=== PATIENT | female | born 1995 | race American Indian/Alaskan Native ===

== ENCOUNTER 2021-05-12 14:20 | Emergency (ER) | payer OTHER, MEDICAID ==
[2021-05-12 15:44] VITALS: BP 122/69
[2021-05-12 16:19] LABS: Bilirubin,Urine NEG (Negative); Blood,Urine MOD (Negative); Color,Urine Yellow (Yellow); Protein,Urine <15 mg/dL mg/dL (Negative); Urobilinogen,Urine < 2.0 mg/dL (<2.0)
[2021-05-12 16:26] LABS: Basophils # (Auto) 0.1 K/mm3 (0.0-0.1); Basophils % (Auto) 0.8 % (0.0-1.8); Eosinophils # (Auto) 0.2 K/mm3 (0.0-0.4); Eosinophils % (Auto) 1.8 % (0.0-4.3); Hematocrit 39.3 % (30.3-42.9); Hemoglobin 13.3 gm/dl (10.1-14.3); Lymphocytes # (Auto) 2.4 K/mm3 (1.2-5.4); Mean Corpuscular HGB Conc 34 % (30-34); Mean Corpuscular Volume 88 fl (79-97); Monocytes # (Auto) 0.9 K/mm3 (0.0-0.8); Monocytes % (Auto) 9.5 % (0.0-7.3); Platelet Count 266 K/mm3 (140-440); Red Blood Count 4.47 M/mm3 (3.65-5.03); Red Cell Distribution Width 14.9 % (13.2-15.2)
[2021-05-12 16:44] LABS: Alanine Aminotransferase 13 units/L (7-56); Albumin 4.6 g/dL (3.9-5); Blood Urea Nitrogen 8 mg/dL (7-17); Calcium 9.3 mg/dL (8.4-10.2); Hemolysis Index 35
[2021-05-12 16:48] LABS: BUN/Creatinine Ratio 13
--- NOTE | 2021-05-12 17:57 | Emergency Department Report ---
ED HPI - General Chief complaint: Vaginal Bleeding Stated complaint: EARLY , LIGHT BLEEDING Time Seen by Provider: 05/12/21 17:16 Source: patient Mode of arrival: Ambulatory Limitations: No Limitations - History of Present Illness Initial comments: This is a 26-year-old female nontoxic, well nourished in appearance, no acute signs of distress presents to the ED with c/o of vaginal bleeding x1 day. Patient stated yesterday she noticed some spotting last night and this morning. Was instructed by her OB to come into the ED for further evaluation. Patient denies any abdominal or pelvic pain. Patient denies any vaginal discharge or foul odor. Patient denies any nausea, vomiting, chest pain, shortness of breathe, fever, chills, headache, stiff neck, numbness, tingling. Patient denies any urinary symptoms. Patient denies any allergies or PMH. Patient stated has OB follow-up in a few days. MD Complaint: vaginal bleeding -: Last night Severity scale (0 -10): 0 Consistency: intermittent Improves with: none Worsens with: none Associated symptoms: vaginal bleeding. denies: nausea/vomiting, vaginal discharge, abdominal pain, dysuria, headache, vision changes, malaise, dysparuenia, rash, shortness of breath, syncope, weakness Vaginal bleeding: light :: Yes Number of weeks : 9 Pre- care: followed by OB - Related Data Allergies Allergy/AdvReac Type Severity Reaction Status Date / Time No Known Allergies Allergy Unverified 05/12/21 15:42 ED Review of Systems ROS: Stated complaint: EARLY , LIGHT BLEEDING Other details as noted in HPI Comment: All other systems reviewed and negative Constitutional: denies: chills, fever Eyes: denies: eye pain, eye discharge, vision change ENT: denies: ear pain, throat pain Respiratory: denies: cough, shortness of breath, wheezing Cardiovascular: denies: chest pain, palpitations Endocrine: no symptoms reported Gastrointestinal: denies: abdominal pain, nausea, diarrhea Genitourinary: abnormal menses. denies: urgency, dysuria, discharge Musculoskeletal: denies: back pain, joint swelling, arthralgia Skin: denies: rash, lesions Neurological: denies: headache, weakness, paresthesias Psychiatric: denies: anxiety, depression Hematological/Lymphatic: denies: easy bleeding, easy bruising ED Past Medical Hx - Past Medical History Previous Medical History?: Yes Hx Asthma: Yes - Surgical History Past Surgical History?: No ED Physical Exam - General Limitations: No Limitations General appearance: alert, in no apparent distress - Head Head exam: Present: atraumatic, normocephalic - Eye Eye exam: Present: normal appearance - Neck Neck exam: Present: normal inspection, full ROM. Absent: lymphadenopathy - Respiratory Respiratory exam: Absent: respiratory distress - Cardiovascular Cardiovascular Exam: Present: regular rate - GI/Abdominal GI/Abdominal exam: Present: soft, normal bowel sounds. Absent: distended, tenderness, guarding, rebound, rigid, diminished bowel sounds - Extremities Exam Extremities exam: Present: normal inspection, full ROM - Back Exam Back exam: Present: normal inspection, full ROM. Absent: tenderness, CVA tenderness (R), CVA tenderness (L), muscle spasm, paraspinal tenderness, vertebral tenderness, rash noted - Neurological Exam Neurological exam: Present: alert, oriented X3, normal gait - Psychiatric Psychiatric exam: Present: normal affect, normal mood - Skin Skin exam: Present: warm, dry, intact, normal color. Absent: rash ED Course Vital Signs 05/12/21 15:43 Temperature 98.4 F Pulse Rate 68 Respiratory 16 Rate Blood Pressure 122/69 O2 Sat by Pulse 100 Oximetry - Reevaluation(s) Reevaluation #1: 05/12/21 17:57 Patient is speaking in full sentences with no signs of distress noted. ED Medical Decision Making - Lab Data Result diagrams: 05/12/21 16:05 05/12/21 16:05 Lab Results 05/12/21 05/12/21 05/12/21 Range/Units 16:05 16:05 16:05 WBC 9.4 (4.5-11.0) K/mm3 RBC 4.47 (3.65-5.03) M/mm3 Hgb 13.3 (10.1-14.3) gm/dl Hct 39.3 (30.3-42.9) % MCV 88 (79-97) fl MCH 30 (28-32) pg MCHC 34 (30-34) % RDW 14.9 (13.2-15.2) % Plt Count 266 (140-440) K/mm3 Lymph % (Auto) 26.0 (13.4-35.0) % [place] % (Auto) 9.5 H (0.0-7.3) % Eos % (Auto) 1.8 (0.0-4.3) % Baso % (Auto) 0.8 (0.0-1.8) % Lymph # (Auto) 2.4 (1.2-5.4) K/mm3 [place] # (Auto) 0.9 H (0.0-0.8) K/mm3 Eos # (Auto) 0.2 (0.0-0.4) K/mm3 Baso # (Auto) 0.1 (0.0-0.1) K/mm3 Seg Neutrophils % 61.9 (40.0-70.0) % Seg Neutrophils # 5.8 (1.8-7.7) K/mm3 Sodium 134 L (137-145) mmol/L Potassium 3.9 (3.6-5.0) mmol/L Chloride 99.6 (98-107) mmol/L Carbon Dioxide 26 (22-30) mmol/L Anion Gap 12 mmol/L BUN 8 (7-17) mg/dL Creatinine 0.6 (0.6-1.2) mg/dL Estimated GFR > 60 ml/min BUN/Creatinine Ratio 13 % Glucose 101 H (65-100) mg/dL Calcium 9.3 (8.4-10.2) mg/dL Total Bilirubin 0.40 (0.1-1.2) mg/dL AST 20 (5-40) units/L ALT 13 (7-56) units/L Alkaline Phosphatase 51 (35-129) units/L Total Protein 6.7 (6.3-8.2) g/dL Albumin 4.6 (3.9-5) g/dL Albumin/Globulin Ratio 2.2 % HCG, Quant 30054 H (0-4) mIU/mL Urine Color (Yellow) Urine Turbidity (Clear) Urine pH (5.0-7.0) Ur Specific [place] (1.003-1.030) Urine Protein (Negative) mg/dL Urine Glucose (UA) (Negative) mg/dL Urine Ketones (Negative) mg/dL Urine Blood (Negative) Urine Nitrite (Negative) Urine Bilirubin (Negative) Urine Urobilinogen (<2.0) mg/dL Ur Leukocyte Esterase (Negative) Urine WBC (Auto) (0.0-6.0) /HPF Urine RBC (Auto) (0.0-6.0) /HPF U Epithel Cells (Auto) (0-13.0) /HPF Blood Type Ord Rhogam Gestat Weeks WEEKS 05/12/21 05/12/21 Range/Units 16:05 Unknown WBC (4.5-11.0) K/mm3 RBC (3.65-5.03) M/mm3 Hgb (10.1-14.3) gm/dl Hct (30.3-42.9) % MCV (79-97) fl MCH (28-32) pg MCHC (30-34) % RDW (13.2-15.2) % Plt Count (140-440) K/mm3 Lymph % (Auto) (13.4-35.0) % [place] % (Auto) (0.0-7.3) % Eos % (Auto) (0.0-4.3) % Baso % (Auto) (0.0-1.8) % Lymph # (Auto) (1.2-5.4) K/mm3 [place] # (Auto) (0.0-0.8) K/mm3 Eos # (Auto) (0.0-0.4) K/mm3 Baso # (Auto) (0.0-0.1) K/mm3 Seg Neutrophils % (40.0-70.0) % Seg Neutrophils # (1.8-7.7) K/mm3 Sodium (137-145) mmol/L Potassium (3.6-5.0) mmol/L Chloride (98-107) mmol/L Carbon Dioxide (22-30) mmol/L Anion Gap mmol/L BUN (7-17) mg/dL Creatinine (0.6-1.2) mg/dL Estimated GFR ml/min BUN/Creatinine Ratio % Glucose (65-100) mg/dL Calcium (8.4-10.2) mg/dL Total Bilirubin (0.1-1.2) mg/dL AST (5-40) units/L ALT (7-56) units/L Alkaline Phosphatase (35-129) units/L Total Protein (6.3-8.2) g/dL Albumin (3.9-5) g/dL Albumin/Globulin Ratio % HCG, Quant (0-4) mIU/mL Urine Color Yellow (Yellow) Urine Turbidity Clear (Clear) Urine pH 7.0 (5.0-7.0) Ur Specific [place] 1.012 (1.003-1.030) Urine Protein <15 mg/dl (Negative) mg/dL Urine Glucose (UA) Neg (Negative) mg/dL Urine Ketones Neg (Negative) mg/dL Urine Blood Mod (Negative) Urine Nitrite Neg (Negative) Urine Bilirubin Neg (Negative) Urine Urobilinogen < 2.0 (<2.0) mg/dL Ur Leukocyte Esterase Neg (Negative) Urine WBC (Auto) 1.0 (0.0-6.0) /HPF Urine RBC (Auto) 1.0 (0.0-6.0) /HPF U Epithel Cells (Auto) 1.0 (0-13.0) /HPF Blood Type O POSITIVE Ord Rhogam Gestat Weeks Rh pos WEEKS - Radiology Data [facility] [address] [place] [address] U ltrasound Report Signed Patient: JENNY MOSER MR#: [id number] : 1995 Acct:[id number] Age/Sex: 26 / F ADM Date: 05/12/21 Loc: ED Attending Dr: Ordering Physician: MARKUS JOHNSON NP Date of Service: 05/12/21 Procedure(s): US OB <= 14 weeks fetus Accession Number(s): [id number] cc: MARKUS JOHNSON NP ULTRASOUND OBSTETRIC INDICATION / CLINICAL INFORMATION: vaginal bleeding. TECHNIQUE: Transabdominal and Transvaginal. COMPARISON: None available. FINDINGS: GESTATIONAL SAC: Well-defined oval shape and intrauterine in location. YOLK SAC: No significant abnormality. EMBRYO/FETUS: No significant abnormality. - [place]-Rump Length = 0.5 cm = 6 weeks, 2 day(s). - Heart Rate, beats per minute (if present) = not detected ADNEXA: No significant abnormality. FREE FLUID: None. ADDITIONAL FINDINGS: None. IMPRESSION: 1. Early IUP measuring 6 weeks 2 days. Short-term follow-up beta-hCG and ultrasound recommended to confirm heart rate and viability. Signer Name: Shree Cruz MD Signed: 05/12/2021 6:33 PM Workstation Name: [id number] Transcribed By: AMY Dictated By: Shree Cruz MD Electronically Authenticated By: Shree Cruz MD Signed Date/Time: 05/12/211832 DD/ 29 TD/TT: [facility] [address] [place] [address] Ultrasound Report Signed Patient: JENNY MOESR MR#: [id number] : 1995 Acct:[id number] Age/Sex: 26 / F ADM Date: 05/12/21 Loc: ED Attending Dr: Ordering Physician: MARKUS JOHNSON NP Date of Service: 05/12/21 Procedure(s): US OB transvaginal Accession Number(s): [id number] cc: MARKUS JOHNSON NP ULTRASOUND OBSTETRIC INDICATION / CLINICAL INFORMATION: vaginal bleeding. TECHNIQUE: Transabdominal and Transvaginal. COMPARISON: None available. FINDINGS: GESTATIONAL SAC: Well-defined oval shape and intrauterine in location. YOLK SAC: No significant abnormality. EMBRYO/FETUS: No significant abnormality. - [place]- Rump Length = 0.5 cm = 6 weeks, 2 day(s). - Heart Rate, beats per minute (if present) = not detected ADNEXA: No significant abnormality. FREE FLUID: None. ADDITIONAL FINDINGS: None. IMPRESSION: 1. Early IUP measuring 6 weeks 2 days. Short-term follow-up beta-hCG and ultrasound recommended to confirm heart rate and viability. Signer Name: Shree Cruz MD Signed: 05/12/2021 6:33 PM Workstation Name: [id number] Transcribed By: TL Dictated By: Shree Cruz MD Electronically Authenticated By: Shree Cruz MD Signed Date/Time: 05/12/211832 DD/ 29 TD/TT: - Medical Decision Making This is a 26-year-old female presents with threatened miscarriage. Patient is stable and was examined by me. Normal abdominal exam. US OB obtained and dictated by the radiologist. Ua obtained. Quantative serum test obtained. Patient notified of the US report with no questions noted by the patient. Patient was instructed f/u with [facility] in 2 days. RH factor positive. Labs within normal limits. At time of discharge, the patient does not seem toxic or ill in appearance. No acute signs of distress noted. Patient agrees to discharge treatment plan of care. No further questions noted by the patient. Critical care attestation.: If time is entered above; I have spent that time in minutes in the direct care of this critically ill patient, excluding procedure time. ED Disposition Clinical Impression: Threatened miscarriage Disposition: DC-01 TO HOME OR SELFCARE Is pt being admited?: No Does the pt Need Aspirin: No Condition: Stable Instructions: Threatened Miscarriage Additional Instructions: Follow-up with a OBGYN doctor in 2 days for repeat quantitative test and possible ultrasound or if symptoms worsen and continue return to emergency r oom as soon as possible. Referrals: PRIMARY CARE, [Referring] - 3-5 Days [facility] [Provider Group] - 3-5 Days [facility] [Provider Group] - 3-5 Days Forms: Work/School Release Form(ED) Time of Disposition: 18:58
--- NOTE | 2021-05-12 18:37 | Ultrasound Report ---
ULTRASOUND OBSTETRIC INDICATION / CLINICAL INFORMATION: vaginal bleeding. TECHNIQUE: Transabdominal and Transvaginal. COMPARISON: None available. FINDINGS: GESTATIONAL SAC: Well-defined oval shape and intrauterine in location. YOLK SAC: No significant abnormality. EMBRYO/FETUS: No significant abnormality. - [place]-Rump Length = 0.5 cm = 6 weeks, 2 day(s). - Heart Rate, beats per minute (if present) = not detected ADNEXA: No significant abnormality. FREE FLUID: None. ADDITIONAL FINDINGS: None. IMPRESSION: 1. Early IUP measuring 6 weeks 2 days. Short-term follow-up beta-hCG and ultrasound recommended to co nfirm heart rate and viability. Signer Name: Shree Cruz MD Signed: 05/12/2021 6:33 PM Workstation Name: [id number]
--- NOTE | 2021-05-12 18:37 | Ultrasound Report ---
ULTRASOUND OBSTETRIC INDICATION / CLINICAL INFORMATION: vaginal bleeding. TECHNIQUE: Transabdominal and Transvaginal. COMPARISON: None available. FINDINGS: GESTATIONAL SAC: Well-defined oval shape and intrauterine in location. YOLK SAC: No significant abnormality. EMBRYO/FETUS: No significant abnormality. - [place]-Rump Length = 0.5 cm = 6 weeks, 2 day(s). - Heart Rate, beats per minute (if present) = not detected ADNEXA: No significant abnormality. FREE FLUID: None. ADDITIONAL FINDINGS: None. IMPRESSION: 1. Early IUP measuring 6 weeks 2 days. Short-term follow-up beta-hCG and ultrasound recommended to co nfirm heart rate and viability. Signer Name: Shree Cruz MD Signed: 05/12/2021 6:33 PM Workstation Name: [id number]
== END 2021-05-12 19:30 | disposition home or self-care (01) ==
LOC: ED 14:20
DX: O20.0 Threatened abortion (principal); J45.909 Unspecified asthma, uncomplicated; Z98.890 Other specified postprocedural states; Z79.899 Other long term (current) drug therapy; Z3A.01 Less than 8 weeks gestation of pregnancy
CPT/HCPCS: 36415; 76801; 76817; 80053; 81001; 84702; 85025; 86900; 86901; 99284

== ENCOUNTER 2021-05-14 10:44 | Day surgery (SDC) | payer OTHER, MEDICAID ==
--- NOTE | 2021-05-14 12:10 | History and Physical Report ---
History of Present Illness Date of examination: 05/14/21 Chief complaint: missed at 6.2 weeks Past History Past Medical History: no pertinent history Past Surgical History: no surgical history Medications and Allergies Allergies Allergy/AdvReac Type Severity Reaction Status Date / Time No Known Allergies Allergy Verified 05/12/21 18:57 Home Medications Medication Instructions Recorded Confirmed Last Taken Type Acyclovir 400 mg PO TID 05/14/21 05/14/21 2 Months Ago History ~03/14/21 Review of Systems All systems: negative (vaginal bleeding) - Vital Signs Vital signs: Vital Signs Temp Pulse Resp BP Pulse Ox 98.2 F 73 20 127/72 99 05/14/21 11:15 05/14/21 11:15 05/14/21 11:15 05/14/21 11:15 05/14/21 11:15 Temp Pulse Resp BP Pulse Ox 98.2 F 73 20 127/72 99 05/14/21 11:15 05/14/21 11:15 05/14/21 11:15 05/14/21 11:15 05/14/21 11:15 - Physical Exam Breasts: Positive: deferred Cardiovascular: Regular rate Lungs: Positive: Clear to auscultation Abdomen: Positive: normal appearance, soft, normal bowel sounds Genitourinary (Female): Positive: normal external genitalia, normal perenium Vagina: Positive: normal moisture Uterus: Positive: normal size Anus/Rectum: Positive: normal perianal skin Extremities: Positive: normal Deep Tendon Reflex Grade: Normal +2 Results All other labs normal. Assessment and Plan missed Plan: confirm no FHT by bedside US informed consent to OR for suction D&C CRiley Del Rio MD
[2021-05-14] MEDS ORDERED: ONDANSETRON 4 MG/2 ML INJ IV PRN (12:34)
[2021-05-14] MEDS ORDERED: HYDROmorphone 1 MG/1 ML INJ IV PRN (12:34)
--- NOTE | 2021-05-14 12:35 | Anesthesia Day of Surgery ---
Anesthesia Day of Surgery - Day of Surgery Patient Examined: Yes Patient H&P Reviewed: Yes Patient is NPO: Yes
--- NOTE | 2021-05-14 12:36 | Anesthesia Consultation ---
Anesthesia Consult and Med Hx Date of service: 05/14/21 - Airway Anesthetic Teeth Evaluation: Chipped ROM Head & Neck: Adequate Mental/Hyoid Distance: Adequate Mallampati Class: Class II Intubation Access Assessment: Good - Pre-Operative Health Status ASA Pre-Surgery Classification: ASA1, Emergency Proposed Anesthetic Plan: General - Pulmonary Hx Asthma: Yes - Hematic Hx Sickle Cell Disease: No - Other Systems Hx Obesity: No
[2021-05-14] MEDS ORDERED: ceFAZolin/Water 2 GM/20 ML 2 GM/20 ML SYRINGE IV ONE (12:52)
[2021-05-14] MEDS ORDERED: LACTATED RINGERS 1,000 ML IV SCH (13:00)
[2021-05-14] MEDS: MIDAZOLAM 2 MG/2 ML INJ IV NR ×2 (13:00→13:12)
--- NOTE | 2021-05-14 13:06 | Operative Report ---
Operative Report Operative Report: Preoperative diagnosis: Missed Postoperative diagnosis: same Procedure: Suction Dilation and Curettage Surgeon: Dr Gudelia Del Rio Complications:none IV Fluids: 500ml Drains: none Urine output:100ml EBL: 200ml Findings: EUA reveals 6 week size uterus, no pelvic masses. SSE:cervix pink Procedure:
[2021-05-14] MEDS ORDERED: ceFAZolin/STERILE WATER 2 GM/20 ML SYRINGE IV NR (13:07)
[2021-05-14] MEDS ORDERED: fentaNYL 100 MCG/2 ML INJ ONE (13:19)
[2021-05-14] MEDS ORDERED: LIDOCAINE MPF (2%) 20 MG/1 ML VIAL 5 ML ONE (13:19)
[2021-05-14] MEDS ORDERED: ONDANSETRON 4 MG/2 ML INJ ONE (13:19)
[2021-05-14] MEDS ORDERED: propofoL 200 MG/20 ML VIAL IV ONE (13:20)
--- NOTE | 2021-05-14 13:27 | Ultrasound Report ---
LIMITED OBSTETRIC ULTRASOUND HISTORY: Confirm no heart tone, missed COMPARISON: Obstetric ultrasound 05/12/2021 TECHNIQUE: Limited transabdominal OB ultrasound performed. FINDINGS: The previously seen intrauterine gestational sac is not visualized on these limited transabdominal so nographic images. IMPRESSION 1. The previously seen intrauterine gestational sac is not visualized on this limited transabdominal study. Recommend correlation for tissue passage and correlation with serial hCG. Signer Name: Dawn Mayfield MD Signed: 05/14/2021 1:23 PM Workstation Name: [id number]
[2021-05-14] MEDS ORDERED: SODIUM CHLORIDE 0.9% IRR 1,500 ML BOTTLE IR ONE (13:30)
[2021-05-14] MEDS ORDERED: KETOROLAC 30 MG/1 ML INJ ONE (13:53)
[2021-05-14] MEDS: HYDROmorphone 1 MG/1 ML INJ IV PRN ×2 (14:10→14:25)
[2021-05-14 15:30] VITALS: BP 114/72
[2021-05-14] MEDS ORDERED: IBUPROFEN 800 MG TAB PO ONE (15:43)
--- NOTE | 2021-05-14 21:31 | Post Anesthesia Evaluation ---
- Post Anesthesia Evaluation Patient Participated: Yes Airway Patent: Yes Stable Respiratory Function: Yes Nausea/Vomiting: No Temp > 96.8F: Yes Pain Manageable: Yes Adequeate Hydration: Yes Anesthesia Complications: No Block Receding Appropriately: Not Applicable Patient on Ventilator: No
== END 2021-05-14 15:45 | disposition home or self-care (01) ==
LOC: OR 10:44
PROVIDERS: ATTEND Obstetrics & Gynecology
DX: O02.1 Missed abortion (principal); J45.909 Unspecified asthma, uncomplicated; Z3A.01 Less than 8 weeks gestation of pregnancy; Z79.899 Other long term (current) drug therapy; Z98.890 Other specified postprocedural states
CPT/HCPCS: 59820; 76815; 88305; J0690; J1170; J1885; J2250; J2405; J2704; J3010; J7120